=== PATIENT | male | born 1975 | race Two or more races ===

== ENCOUNTER 2024-08-04 09:42 | Emergency (ER) | payer MEDICAID, SELFPAY ==
[2024-08-04 09:43] VITALS: BMI 28.3
[2024-08-04 10:20] VITALS: BP 124/78; PULSE 71; RESP 18; TEMP 36.6; O2SAT 96; BMI 30.2
[2024-08-04] MEDS: ALBUTEROL/IPRATROPIUM (Duoneb) RT SOL 3 ML NEBU INH (11:06)
[2024-08-04 11:07] VITALS: PULSE 64; RESP 19; O2SAT 100
--- NOTE | 2024-08-04 11:31 | PD.EDSOB ---
ED SOB =RME/HPI General Chief Complaint: Shortness of Breath/Dyspnea Stated Complaint: SOB X2DAY Time Seen by Provider: 08/04/24 10:08 Source: patient Arrival date/time: 08/04/24 09:42 47-year-old male presents with complaint of shortness of breath. Patient states it started 1 hour ago. He states he has a history of asthma, which she was diagnosed with 1 year ago. Denies any chest pain. Denies cough. No fevers. Related Data Previous Rx's ?Medication ?Instructions ?Recorded Hydrocodone/Acetaminophen * (NORCO 2 tab PO Q4H PRN pain or cough #28 07/24/17 5/325 *) tabs albuterol sulfate 90 mcg/actuation 1 puff inhalation Q6H PRN 06/17/23 aerosol inhaler (Ventolin HFA) shortness of breath or wheezing #6.7 grams albuterol sulfate 90 mcg/actuation 2 puff inhalation Q6H PRN 08/04/24 aerosol inhaler (Ventolin HFA) shortness of breath or wheezing #8.5 grams ipratropium bromide 17 2 puff inhalation Q8H #12.9 grams 08/04/24 mcg/actuation HFA aerosol inhaler Allergies Allergy/AdvReac Type Severity Reaction Status Date / Time NKA* Allergy Uncoded 08/04/24 09:45 Review of Systems Review of Systems Systems Reviewed: All systems reviewed, normal except as documented Narrative Review of Systems: Gen: No fever, no chills, no weight loss EYES: No discharge, no visual changes, no pain HEENT: No ear pain, no congestion, no sore throat PULM:+ shortness of breath, + cough, no congestion CV: No chest pain, + dyspnea on exertion, no palpitations GI: No nausea, no vomiting, no diarrhea, no pain, no constipation : No frequency, no urgency,? no dysuria Musc/skel: No joint pain, no back pain Skin: No rash? Psyc: No hallucinations, no depression Heme/Lymph: No easy bleeding or bruising tendencies Neuro: No weakness, no headache ED Exam Narrative Physical exam: General: Sittiing in Exam table in no acute distress, answering questions appropriately HENT: normocephalic, atraumatic, EOMI, PERRLA, moist mucous membranes Chest: chest wall is nontender Cardiac: regular rate and rhythm, normal S1 and S2, no murmurs, rubs, or gallops, capillary refill ?2 seconds Pulmonary: + wheezing, no crackles, or rhonchi Abdominal: active bowel sounds, soft, nontender, nondistended Neuro: A&OX3, CN II-XII intact, sensation grossly intact bilaterally in UE and LE. Skin: no rashes, no ecchymosis Ext: no lower extremity edema Course Quality Measures none Orders Category Date Time Status Albuterol/Ipratr Rt Nicolle [Duoneb Rt Nicolle] Med 08/04/24 10:46 Discontinued 3 ml INH X1 ONE predniSONE Med 08/04/24 10:46 Discontinued 60 mg PO X1 ONE Vital Signs Vital signs: Vital Signs Temperature 97.8 F 08/04/24 10:20 Pulse Rate 71 08/04/24 10:20 Respiratory Rate 18 08/04/24 10:20 Blood Pressure 124/78 08/04/24 10:20 Pulse Oximetry (%) 96 08/04/24 10:20 Oxygen Delivery Method Room Air 08/04/24 10:20 Shortness of Breath / Dyspnea MDM Narrative MDM Narrative:: Patient felt much improved after breathing treatment and steroid medication. SPO2 normal on room air. No respiratory distress. Stable for discharge with close outpatient follow-up. Patient data External records reviewed:: [facility] previous records Clinical information provided by:: patient Social determinants that could affect healthcare access:: none Patient has the following chronic illnesses:: none How is presenting disease/condition affected by chronic disease/condition?: no chronic disease Evaluation data The following diagnostics were reviewed and interpreted by me:: other (specify) Lab and/or radiology exams considered but not ordered:: none Interpretation Summary: none Medications / Prescriptions Medications or Prescriptions considered but not ordered:: none Medication administrations:: Medication Administration History Discontinued Medications Albuterol/Ipratropium (Albuterol/Ipratropium (Duoneb) Rt Nicolle 3 Ml Nebu) 3 ml INH X1 ONE Stop: 08/04/24 10:47 Last Admin: 08/04/24 11:06 Dose: 3 ml Documented By: DARRICK Prednisone (Prednisone 20 Mg Tablet) 60 mg PO X1 ONE Stop: 08/04/24 10:47 Last Admin: 08/04/24 11:36 Dose: 60 mg Documented By: DD all medications administered and effective Consultations Consultation(s) initiated? (list below): No Diagnosis Shortness of Breath Differential Diagnosis: acute exacerbation of chronic obstructive airways disease and asthma with exacerbation Most likely diagnosis given after review of the tests above:: Asthma with exacerbation Admission Indicated Admission indicated?: not indicated Explain why admission is indicated or not indicated:: none Admission Request Was there a request for admission?: No Disposition Plan Disposition Plan: Discharge Discharge Attestation Discharge Attestation: The patient and all family members were given an opportunity to ask questions and understood the discharge instructions. Discharge instructions specifically effects, indications for sooner follow up or return to the emergency department, and the expected course of current diagnosis. Patient condition: Stable Discharge Plan Plan Patient Disposition: HOME (Self Care) Patient condition on transfer: Stable Prescriptions/Referrals Prescriptions/Med Rec: New albuterol sulfate [Ventolin HFA] 90 mcg/actuation HFA aerosol inhaler 2 puff inhalation Q6H PRN (Reason: shortness of breath or wheezing) Qty: 8.5 0RF ipratropium bromide 17 mcg/actuation HFA aerosol inhaler 2 puff inhalation Q8H Qty: 12.9 0RF No Action Hydrocodone/Acetaminophen * (NORCO 5/325 *) 1 TAB tablet 2 tab PO Q4H PRN (Reason: pain or cough) Qty: 28 0RF albuterol sulfate [Ventolin HFA] 90 mcg/actuation HFA aerosol inhaler 1 puff inhalation Q6H PRN (Reason: shortness of breath or wheezing) Qty: 6.7 0RF Referrals: Dimitri Angela MD [Primary Care Provider] - In 1 week Problem List Clinical Impression: Asthma with exacerbation Patient/Caregiver Discharge Instructions Discharge Activity: activity as tolerated Education Materials: Asthma Trigger Checklist, Asthma Additional Instructions: - Recoja saw medicamentos y ?selos seg?n las indicaciones. - Comience a macey esteroides ma?kira, ya que recibi? nicolas dosis hoy. - Programe nicolas dara de seguimiento con fajardo m?dico de cabecera el lunes para un seguimiento. Regrese al departamento de emergencias si los s?ntomas empeoran o si fajardo condici?n cambia. - Please pickle solution maker your medications and use as directed. -Start your steroids tomorrow you had a dose today -Make a follow-up appointment with your primary doctor on Wednesday for follow-up Return to the emergency department is any worsening symptoms change in condition. Print Language: Indian Stand Alone Forms: Hortencia Award Info., Patient Portal Info Letter PA/ON SITE CONSTRUCTION SUPERINTENDENT Supervising Physician PA/ON SITE CONSTRUCTION SUPERINTENDENT Supervising Physician: dr. Luis
[2024-08-04] MEDS: predniSONE 20 MG TABLET 60 MG PO (11:36)
[2024-08-04 13:24] VITALS: BP 122/80; PULSE 76; RESP 18; TEMP 36.7; O2SAT 99
== END 2024-08-04 13:27 | disposition home or self-care (01) ==
PROVIDERS: Emergency Provider Emergency Medicine; PCP Family Medicine
DX: J45.901 Unspecified asthma with (acute) exacerbation (principal)
CPT/HCPCS: 94640; 99283; A9270; J7512

== ENCOUNTER 2025-01-14 18:26 | Emergency (ER) | payer MEDICAID, SELFPAY ==
[2025-01-14 18:27] VITALS: BMI 28.3
[2025-01-14 19:31] VITALS: BP 132/75; PULSE 78; RESP 20; TEMP 37; O2SAT 93
--- NOTE | 2025-01-14 19:39 | XR_ITS ---
Examination: PA chest single view TECHNIQUE: Upright PA chest single view Date and time: January 14, 2025 1947 hours Comparison July 11, 2023 INDICATIONS: Shortness of breath today. FINDINGS: Normal heart size. Lungs are clear. The osseous structures are intact IMPRESSION: No active disease
--- NOTE | 2025-01-14 19:41 | PD.EDSOB ---
ED SOB =RME/HPI General Chief Complaint: Shortness of Breath/Dyspnea Stated Complaint: SOB X2 DAYS Arrival date/time: 01/14/25 18:26 RME / HPI RME / HPI Narrative: This section includes all my notes and documentations, including HPI, PE, and ED course. Daniel Kaur MD HPI: 49 y/o male with Hx of Asthma presents with about 8 days of worsening cough, productive cough, purulent sputum, and dyspnea.. Patient is a former smoker. No other complaints. ROS: All negative except as documented in HPI. Physical Exam: General: Alert and oriented. Eyes: Conjunctivae and lids clear. ENT: No nasal congestion. Pharynx normal. TM normal bilaterally. Neck: Supple. Heart: RRR. Lungs: No respiratory distress. Severely decreased air movement with diffused wheezing. Skin: Warm and dry. Neuro: Alert and oriented X 3. I reviewed all diagnostic test results: My interpretation of the chest x-ray is: increased bronchial markings. Covid/Influenza: Negative. At this point, diagnoses include: Lower Respiratory Infection, Asthma exacerbation. Treatment here included: SoluMedrol, Benadryl, Albuterol/Ipratroprium Duoneb, Magnesium Sulfate. Significant improvement noted. Recommended outpatient care. Based on my best medical judgment, made decision no further evaluation or treatment indicated at this time. Patient understands and agrees to the discharge instructions customized and printed, see below. Discharge instructions from Dr. Kaur: --No physical exertion for 3 days to help rest the lungs. ?No smoking or exposure to smoking or pets or dust or cold or humidity. --Zithromax to kill the germs causing the bronchitis. --Prednisone to help decrease the swelling in the airways. --Albuterol 2 puffs every 4-6 hours for 3 days to help keep the airways open. Then as needed for cough or shortness of breath. --See a private doctor next week for recheck if not completely better. --Seek immediate medical care with worsening or with any concerns. Daniel Kaur MD Related Data Previous Rx's ?Medication ?Instructions ?Recorded Hydrocodone/Acetaminophen * (NORCO 2 tab PO Q4H PRN pain or cough #28 07/24/17 5/325 *) tabs albuterol sulfate 90 mcg/actuation 1 puff inhalation Q6H PRN 06/17/23 aerosol inhaler (Ventolin HFA) shortness of breath or wheezing #6.7 grams albuterol sulfate 90 mcg/actuation 2 puff inhalation Q6H PRN 08/04/24 aerosol inhaler (Ventolin HFA) shortness of breath or wheezing #8.5 grams ipratropium bromide 17 2 puff inhalation Q8H #12.9 grams 08/04/24 mcg/actuation HFA aerosol inhaler albuterol sulfate 90 mcg/actuation 2 puff inhalation Q6H PRN 01/14/25 aerosol inhaler shortness of breath or wheezing #8.5 grams azithromycin 500 mg tablet 500 mg PO QDAY 3 days #3 tabs 01/14/25 (Zithromax TRI-PEGGY) prednisone 50 mg tablet 50 mg PO BID 3 days #6 tabs 01/14/25 Allergies Allergy/AdvReac Type Severity Reaction Status Date / Time NKA* Allergy Uncoded 08/04/24 09:45 Review of Systems Review of Systems Systems Reviewed: All systems reviewed, normal except as documented Past Medical History Social History SMOKING STATUS: Former smoker ED Exam Narrative Physical exam: Refer to HPI above Course Course Course Narrative: CXR is ordered for determining the etiology of shortness of breath. Quality Measures none Orders Category Date Time Status Bedside COVID-19 Antigen Test NOW Care 01/14/25 19:39 Active Bedside Influenza A&B Antigen Test NOW Care 01/14/25 19:39 Completed Saline [Insert IV] NOW Care 01/14/25 19:41 Active XR chest 1V portable Stat Exams 01/14/25 19:39 Taken Albuterol/Ipratr Rt Nicolle [Duoneb Rt Nicolle] Med 01/14/25 19:41 Discontinued 6 ml INH X1 ONE Azithromycin Po [Zithromax PO] Med 01/14/25 20:59 Discontinued 500 mg PO X1 ONE DiphenhydrAMINE INJ [Benadryl Inj] Med 01/14/25 19:41 Discontinued 50 mg IVP X1 STA Magnesium Sulfate 2 GM Ivpb [Magnesium Sulfate Ivpb] Med 01/14/25 19:41 Active 2 gm in 50 ml IV X1 MethylPREDNISolone.* [SoluMEDROL Inj] Med 01/14/25 19:41 Discontinued 125 mg IVP X1 ONE Sodium Chloride 0.9% 1000 ml [Ns] 1,000 ml Med 01/14/25 19:41 Discontinued IV 999 mls/hr Vital Signs Vital signs: Vital Signs Temperature 98.6 F 01/14/25 19:31 Pulse Rate 78 01/14/25 19:31 Respiratory Rate 20 01/14/25 19:31 Blood Pressure 132/75 H 01/14/25 19:31 Pulse Oximetry (%) 93 L 01/14/25 19:31 Oxygen Delivery Method Room Air 01/14/25 19:31 Shortness of Breath / Dyspnea MDM Narrative MDM Narrative:: Scribe Attestation: I, Neela Elias, am scribing for and in the presence of Dr. Kaur. Provider Notation: Although this document has been carefully reviewed, there may still be some phonetic and other typographical errors.? These errors are purely grammatical due to imperfections in the software program and should not be construed in any way to? compromise the substance of the patient's medical care during this visit. 49 y/o male with Hx of Asthma presents with worsening SOB x 1 week. Patient is a former smoker. No other complaints. Patient data External records reviewed:: [facility] previous records (Reviewed prior ED records from08/04/24. Patient was seen for Asthma with exacerbation.) Clinical information provided by:: patient Social determinants that could affect healthcare access:: none Patient has the following chronic illnesses:: Asthma How is presenting disease/condition affected by chronic disease/condition?: exacerbated by Evaluation data The following diagnostics were reviewed and interpreted by me:: radiology exam(s) and other (specify) (Serology) Lab and/or radiology exams considered but not ordered:: None Interpretation Summary: I reviewed all diagnostic test results: My interpretation of the chest x-ray is: increased bronchial markings. Covid/Influenza: Negative. Medications / Prescriptions Medications or Prescriptions considered but not ordered:: None Medication administrations:: Medication Administration History Magnesium Sulfate (Magnesium Sulfate Ivpb) 2 gm in 50 mls @ 25 mls/hr IV X1 ONE Stop: 01/14/25 21:40 Last Admin: 01/14/25 20:22 Dose: 25 mls/hr Documented By: RC Discontinued Medications Albuterol/Ipratropium (Albuterol/Ipratropium (Duoneb) Rt Nicolle 3 Ml Nebu) 6 ml INH X1 ONE Stop: 01/14/25 19:42 Last Admin: 01/14/25 20:03 Dose: 6 ml Documented By: LELA Azithromycin (Azithromycin 250 Mg Tablet) 500 mg PO X1 ONE Stop: 01/14/25 21:00 Diphenhydramine HCl (Diphenhydramine Inj 50 Mg/Ml Vial) 50 mg IVP X1 STA Stop: 01/14/25 19:42 Last Admin: 01/14/25 20:19 Dose: 50 mg Documented By: TOYIN Sodium Chloride (Ns) 1,000 mls @ 999 mls/hr IV .Q1H1M ONE Stop: 01/14/25 20:41 Last Admin: 01/14/25 20:16 Dose: 999 mls/hr Documented By: TOYIN Methylprednisolone Sodium Succinate (Methylprednisolone Sod Succ 62.5 Mg/Ml 2ml Vial) 125 mg IVP X1 ONE Stop: 01/14/25 19:42 Last Admin: 01/14/25 20:16 Dose: 125 mg Documented By: TOYIN SoluMedrol, Benadryl, Albuterol/Ipratroprium Duoneb, Magnesium Sulfate. Consultations Consultation(s) initiated? (list below): No Diagnosis Shortness of Breath Differential Diagnosis: congestive heart failure, community acquired pneumonia, asthma with exacerbation, pulmonary embolism and other (Bronchitis) Most likely diagnosis given after review of the tests above:: Lower Respiratory Infection, Asthma exacerbation. Admission Indicated Admission indicated?: not indicated Explain why admission is indicated or not indicated:: With significant improvement, there was no indication for admission. Admission Request Was there a request for admission?: No Disposition Plan Disposition Plan: Discharge Discharge Attestation Discharge Attestation: The patient and all family members were given an opportunity to ask questions and understood the discharge instructions. Discharge instructions specifically effects, indications for sooner follow up or return to the emergency department, and the expected course of current diagnosis. Patient condition: Stable Discharge Plan Plan Patient Disposition: HOME (Self Care) Prescriptions/Referrals Prescriptions/Med Rec: New prednisone 50 mg tablet 50 mg PO BID 3 Days Qty: 6 0RF albuterol sulfate 90 mcg/actuation HFA aerosol inhaler 2 puff inhalation Q6H PRN (Reason: shortness of breath or wheezing) Qty: 8.5 0RF azithromycin [Zithromax TRI-PEGGY] 500 mg tablet 500 mg PO QDAY 3 Days Qty: 3 0RF No Action Hydrocodone/Acetaminophen * (NORCO 5/325 *) 1 TAB tablet 2 tab PO Q4H PRN (Reason: pain or cough) Qty: 28 0RF albuterol sulfate [Ventolin HFA] 90 mcg/actuation HFA aerosol inhaler 1 puff inhalation Q6H PRN (Reason: shortness of breath or wheezing) Qty: 6.7 0RF albuterol sulfate [Ventolin HFA] 90 mcg/actuation HFA aerosol inhaler 2 puff inhalation Q6H PRN (Reason: shortness of breath or wheezing) Qty: 8.5 0RF ipratropium bromide 17 mcg/actuation HFA aerosol inhaler 2 puff inhalation Q8H Qty: 12.9 0RF Referrals: Dimitri Angela MD [Primary Care Provider] - In 1 week Problem List Clinical Impression: Lower respiratory infection, Asthma exacerbation Patient/Caregiver Discharge Instructions Discharge Activity: activity as tolerated Education Materials: ED Asthma, Acute (Adult), ED Bronchitis with Wheezing (Adult) Additional Instructions: Discharge instructions from Dr. Kaur: --No physical exertion for 3 days to help rest the lungs. ?No smoking or exposure to smoking or pets or dust or cold or humidity. --Zithromax to kill the germs causing the bronchitis. --Prednisone to help decrease the swelling in the airways. --Albuterol 2 puffs every 4-6 hours for 3 days to help keep the airways open. Then as needed for cough or shortness of breath. --See a private doctor next week for recheck if not completely better. --Seek immediate medical care with worsening or with any concerns. Instrucciones de tressa del Dr. Kaur: -- No realice esfuerzo f?sico briseyda 3 d?as para ayudar a los pulmones a descansar. -- No fume ni se exponga al humo, a las mascotas, al polvo, al fr?o ni a la humedad. -- Zitromax para eliminar los g?rmenes que causan la bronquitis. -- Prednisona para ayudar a disminuir la inflamaci?n de las v?as respiratorias. -- Albuterol: 2 inhalaciones cada 4-6 horas briseyda 3 d?as para ayudar a mantener las v?as respiratorias abiertas. Posteriormente, seg?n sea necesario para la tos o la dificultad para respirar. -- Consulte con un m?dico particular la pr?xima semana para nicolas revisi?n si no mejora por completo. -- Busque atenci?n m?dica inmediata si la enfermedad empeora o tiene alguna inquietud. Print Language: Vietnamese Stand Alone Forms: Hortencia Award Info., Patient Portal Info Letter
[2025-01-14] MEDS: ALBUTEROL/IPRATROPIUM (Duoneb) RT SOL 3 ML NEBU 6 ML INH (20:03)
[2025-01-14 20:04] VITALS: PULSE 79; RESP 23; O2SAT 95
[2025-01-14] MEDS: SODIUM CHLORIDE 0.9% 1000 ML 1,000 ML 999 ML IV (20:16)
[2025-01-14] MEDS: MethylPREDNISolone SOD SUCC 62.5 MG/ML 2ML VIAL 125 MG IVP (20:16)
[2025-01-14] MEDS: DiphenhydrAMINE INJ 50 MG/ML VIAL IVP (20:19)
[2025-01-14] MEDS: Magnesium Sulfate 2 GM Ivpb 2 GM/50 ML BAG IV (20:22)
[2025-01-14] MEDS: AZITHROMYCIN 250 MG TABLET 500 MG PO (21:06)
[2025-01-14 22:20] VITALS: BP 127/79; PULSE 63; RESP 18; TEMP 36.6; O2SAT 97
== END 2025-01-14 22:21 | disposition home or self-care (01) ==
PROVIDERS: Emergency Provider Emergency Medicine; PCP Family Medicine
DX: J45.901 Unspecified asthma with (acute) exacerbation (principal); J22 Unspecified acute lower respiratory infection; Z87.891 Personal history of nicotine dependence
CPT/HCPCS: 71045; 87400; 87811; 94640; 96361; 96374; 96375; 99284; A9270; J1200; J2919; J3475; J7030

== ENCOUNTER 2025-08-02 04:40 | Emergency (ER) | payer MEDICAID, SELFPAY ==
[2025-08-02 04:40] VITALS: BP 141/87; PULSE 77; RESP 18; TEMP 37; O2SAT 95
[2025-08-02 04:41] VITALS: BMI 29.2
--- NOTE | 2025-08-02 05:22 | PD.EDEAR ---
ED Ear RME/HPI General Chief complaint: Ear Stated complaint: NELSON. EAR PAIN, WORSE ON LEFT Time Seen by Provider: 08/02/25 05:16 Arrival date/time: 08/02/25 04:40 50M with history of asthma presents to ED with 2 days of bilateral ear pain (L>R). Patient denies cough. Limitations: no limitations Related Data Previous Rx's ?Medication ?Instructions ?Recorded Hydrocodone/Acetaminophen * (NORCO 2 tab PO Q4H PRN pain or cough #28 07/24/17 5/325 *) tabs albuterol sulfate 90 mcg/actuation 1 puff inhalation Q6H PRN 06/17/23 aerosol inhaler (Ventolin HFA) shortness of breath or wheezing #6.7 grams albuterol sulfate 90 mcg/actuation 2 puff inhalation Q6H PRN 08/04/24 aerosol inhaler (Ventolin HFA) shortness of breath or wheezing #8.5 grams ipratropium bromide 17 2 puff inhalation Q8H #12.9 grams 08/04/24 mcg/actuation HFA aerosol inhaler albuterol sulfate 90 mcg/actuation 2 puff inhalation Q6H PRN 01/14/25 aerosol inhaler shortness of breath or wheezing #8.5 grams [id number] 3.5 4 drp otic (ear) QID 10 days #10 mL 08/02/25 mg-10,000 unit/mL-1 % ear drops,susp Allergies Allergy/AdvReac Type Severity Reaction Status Date / Time No Known Allergies Allergy Verified 08/02/25 04:41 Review of Systems Review of Systems Systems Reviewed: All systems reviewed, normal except as documented ENT Ears, Nose, Mouth, and Throat: Reports as per HPI and Reports otalgia Past Medical History Past Medical History CARDIAC: Negative Congestive Heart Failure RESPIRATORY: Negative Chronic Obstructive Pulmonary Disease (COPD) GENITOURINARY: Negative Renal Disease ENDOCRINE: Negative Diabetes Mellitus Type 1 or Diabetes Mellitus Type 2 Social History SMOKING STATUS: Never smoker ED Exam General Limitations: Present no limitations General appearance: Present alert and in no apparent distress Head Head exam: Present atraumatic ENT ENT exam: Present mucous membranes moist Expanded ENT Exam External ear exam: Present external tenderness (tragal (L>R)) TM/Canal exam: Bilateral TM: canal discharge (L>R) and canal tenderness (L>R) Neck Neck exam: Present normal inspection, full ROM and trachea midline Chest Chest inspection: Present normal inspection and symmetric chest wall rise Neurological Exam Neurological exam: Present alert and oriented X3 Psychiatric Psychiatric exam: Present normal affect and normal mood Skin Skin exam: Present warm, dry, intact and normal color Course Quality Measures none Orders Category Date Time Status Naproxen [Naprosyn] Med 08/02/25 05:24 Once 500 mg PO X1 ONE Vital Signs Vital signs: Vital Signs Temperature 98.6 F 08/02/25 04:40 Pulse Rate 77 08/02/25 04:40 Respiratory Rate 18 08/02/25 04:40 Blood Pressure 141/87 H 08/02/25 04:40 Pulse Oximetry (%) 95 08/02/25 04:40 Oxygen Delivery Method Room Air 08/02/25 04:40 O2 at 95% on RA and WNLs Ear MDM Narrative MDM Narrative:: 50M with history of asthma presents to ED with 2 days of bilateral ear pain (L>R). Patient denies cough. Physical exam reveals bilateral tragal/canal tenderness and discharge (L>R). L TM not visualized. R TM normal. Patient is afebrile, calm, and alert. Meds and student success counselor given. Patient data External records reviewed:: [facility] previous records Clinical information provided by:: patient Social determinants that could affect healthcare access:: none Patient has the following chronic illnesses:: asthma How is presenting disease/condition affected by chronic disease/condition?: uneffected by Evaluation data The following diagnostics were reviewed and interpreted by me:: other (specify) (none) Lab and/or radiology exams considered but not ordered:: not ordered Interpretation Summary: n/a Medications / Prescriptions Medications or Prescriptions considered but not ordered:: ordered Medication administrations:: Medication Administration History Naproxen (Naproxen 250 Mg Tablet) 500 mg PO X1 ONE Stop: 08/02/25 05:25 above Consultations Consultation(s) initiated? (list below): No Diagnosis Ear Differential Diagnosis: otitis externa, otitis media, foreign body in ear, ruptured TM and cerumen impaction Most likely diagnosis given after review of the tests above:: OE Admission Indicated Admission indicated?: not indicated Admission Request Was there a request for admission?: No Disposition Plan Disposition Plan: Discharge Discharge Attestation Discharge Attestation: The patient and all family members were given an opportunity to ask questions and understood the discharge instructions. Discharge instructions specifically effects, indications for sooner follow up or return to the emergency department, and the expected course of current diagnosis. Patient condition: Stable Discharge Plan Plan Patient Disposition: HOME (Self Care) Discharge Disposition comment: Stable Prescriptions/Referrals Prescriptions/Med Rec: New bvkrulmx-rspaumlgv-PH 3.5-10,000-1 mg/mL-unit/mL-% drops,suspension 4 drp otic (ear) QID 10 Days Qty: 10 0RF No Action Hydrocodone/Acetaminophen * (NORCO 5/325 *) 1 TAB tablet 2 tab PO Q4H PRN (Reason: pain or cough) Qty: 28 0RF albuterol sulfate [Ventolin HFA] 90 mcg/actuation HFA aerosol inhaler 1 puff inhalation Q6H PRN (Reason: shortness of breath or wheezing) Qty: 6.7 0RF albuterol sulfate [Ventolin HFA] 90 mcg/actuation HFA aerosol inhaler 2 puff inhalation Q6H PRN (Reason: shortness of breath or wheezing) Qty: 8.5 0RF ipratropium bromide 17 mcg/actuation HFA aerosol inhaler 2 puff inhalation Q8H Qty: 12.9 0RF albuterol sulfate 90 mcg/actuation HFA aerosol inhaler 2 puff inhalation Q6H PRN (Reason: shortness of breath or wheezing) Qty: 8.5 0RF Problem List Clinical Impression: Otitis externa Patient/Caregiver Discharge Instructions Education Materials: ED External Ear Infection (Adult) Additional Instructions: Please follow-up with PCP within 24-48 hours and return immediately if symptoms worsen. Ibuprofen/Tylenol can be used simultaneously for greater fever/pain control. Keep drops in ear at least 1 min each time. Print Language: Chinese Stand Alone Forms: Patient Portal Info Letter MAGDALENA/KOKO Supervising Physician MAGDALENA/KOKO Supervising Physician: Dr. Kaur
[2025-08-02] MEDS: NAPROXEN 250 MG TABLET 500 MG PO (05:39)
== END 2025-08-02 05:40 | disposition home or self-care (01) ==
LOC: SERX 05:49
PROVIDERS: Emergency Provider Emergency Medicine; PCP Family Medicine
DX: H60.93 Unspecified otitis externa, bilateral (principal)
CPT/HCPCS: 99281; A9270